=== PATIENT | female | born 1950 | race Asian ===

== ENCOUNTER 2022-08-24 12:33 | Emergency (ER) | payer OTHER ==
[~2022-08-24] VITALS: Ht 157.5 cm; Wt 54.5 kg
[2022-08-24 12:37] VITALS: BP 129/86
[2022-08-24] MEDS ORDERED: ACET-2247 PO (12:43)
[2022-08-24] MEDS ORDERED: LOSA100T59 PO (12:43)
[2022-08-24] MEDS ORDERED: ESTR42.510 VG (12:43)
[2022-08-24] MEDS ORDERED: FAMO40TA7 PO (12:43)
[2022-08-24] MEDS ORDERED: PREDAOS OS (13:04)
[2022-08-24] MEDS ORDERED: VALA100026 PO (13:04)
== END 2022-08-24 13:17 | disposition home or self-care (01) ==
LOC: EMS 12:36
DX: B02.30 Zoster ocular disease, unspecified (principal); R51.9 Headache, unspecified; I10 Essential (primary) hypertension; Z91.013 Allergy to seafood
CPT/HCPCS: 99283; Z7502

== ENCOUNTER 2022-08-31 11:46 | Emergency (ER) | payer OTHER ==
[~2022-08-31] VITALS: Ht 160 cm; Wt 56.8 kg
[~2022-08-31 11:46] MED LIST: ACET-2247 PO; ESTR42.510 VG; FAMO40TA7 PO; LOSA100T59 PO; PREDAOS OS; VALA100026 PO
[2022-08-31] MEDS ORDERED: SODIUM CHLORIDE 0.9% 1,000 ML IV ONE (13:15)
[2022-08-31 13:27] LABS: HEMATOCRIT 33.7 % (36-46); HEMOGLOBIN 11.4 g/dL (12.0-16.0); LYMPHOCYTES # (AUTO) 1.8 K/uL (1.0-4.8); LYMPHOCYTES % (AUTO) 23.2 % (22.0-44.0); MEAN CORPUSCULAR HEMOGLOBIN 30.9 pg (26.0-34.0); MEAN CORPUSCULAR HGB CONC 33.8 G/dL (31.0-37.0); MEAN CORPUSCULAR VOLUME 92 fL (80-100); MONOCYTES # (AUTO) 0.5 K/uL (0.1-1.0); MONOCYTES % (AUTO) 6.6 % (2.0-9.0); NEUTROPHILS # (AUTO) 5.2 K/uL (1.8-7.7); NEUTROPHILS % (AUTO) 66.2 % (40.0-70.0); PLATELET COUNT (AUTO) 317 K/uL (150-450); RED BLOOD CELL COUNT(AUTO) 3.68 MIL/uL (4.00-5.20); RED CELL DISTRIBUTION WIDTH 13.5 % (11.5-14.5)
[2022-08-31 13:37] LABS: CALCIUM, TOTAL 9.4 mg/dL (8.8-10.5); CREATININE 1.29 mg/dL (0.60-1.30); POTASSIUM 3.9 mmol/L (3.5-5.1)
[2022-08-31 13:42] LABS: BILIRUBIN,TOTAL 0.6 mg/dL (0.1-1.0)
[2022-08-31 13:44] LABS: INR 0.9 (0.9-1.1); PROTHROMBIN TIME 9.8 SEC (9.4-11.6)
[2022-08-31 14:45] VITALS: BP 144/83
[2022-08-31 16:10] LABS: APPEARANCE,URINE CLEAR (CLEAR); BILIRUBIN,URINE NEGATIVE (NEGATIVE); GLUCOSE, URINE (UA) NEGATIVE (NEGATIVE); KETONES,URINE NEGATIVE (NEGATIVE); LEUKOCYTE ESTERASE ,URINE NEGATIVE (NEGATIVE); NITRATE,URINE NEGATIVE (NEGATIVE); OCCULT BLOOD,URINE SMALL (NEGATIVE); PH,URINE 5.5 (5.0-8.0); PROTEIN,URINE NEGATIVE (NEGATIVE); SPECIFIC GRAVITIY, URINE 1.009 (1.003-1.030); UROBILINOGEN,URINE <=1.0 mg/dL (<=1.0)
[2022-08-31 16:27] LABS: BACTERIA,URINE Rare /HPF (None Seen); SQUAMOUS EPITHELIAL CELL,UR Rare /LPF (None Seen); WBC,URINE 0-2 /HPF (0-5)
== END 2022-08-31 16:52 | disposition home or self-care (01) ==
LOC: EMS 11:47
DX: E86.0 Dehydration (principal); R42 Dizziness and giddiness; I10 Essential (primary) hypertension; Z91.013 Allergy to seafood
CPT/HCPCS: 99285; 96360; 70450; 71045; 80053; 81001; 83880; 84484; 85025; 85610; 85730; 36415; 93005; J7030

== ENCOUNTER 2022-09-06 10:19 | Emergency (ER) | payer OTHER ==
[~2022-09-06] VITALS: Ht 157.5 cm; Wt 54.5 kg
[2022-09-06 10:24] VITALS: BP 143/77
[2022-09-06] MEDS ORDERED: SIMV-261 PO (10:25)
[2022-09-06] MEDS ORDERED: IBUPROFEN 600 MG TABLET PO ONE (12:45)
== END 2022-09-06 13:45 | disposition home or self-care (01) ==
LOC: EMS 10:36
DX: M54.6 Pain in thoracic spine (principal); I10 Essential (primary) hypertension
CPT/HCPCS: 99282; Z7502; Z7610

== ENCOUNTER 2023-08-21 08:43 | Emergency (ER) | payer MEDICARE, OTHER ==
[~2023-08-21] VITALS: Ht 160 cm; Wt 54.5 kg
[~2023-08-21 08:43] MED LIST changes: -ESTR42.510 VG; -PREDAOS OS; +SIMV-261 PO; -VALA100026 PO
[2023-08-21 08:45] VITALS: TEMP 97.9
[2023-08-21] MEDS: CYCLOBENZAPRINE HCL 10 MG TABLET PO ONE (09:15)
[2023-08-21] MEDS: LIDOCAINE 5% TRANSDERMAL PATCH TD ONE (09:15)
[2023-08-21] MEDS: KETOROLAC TROMETHAMINE 30 MG/ML VIAL IM ONE (09:16)
[2023-08-21 10:10] VITALS: BP 116/64; PULSE 82; RESP 16
[2023-08-21] MEDS ORDERED: CYCL-448 PO (10:23)
[2023-08-21] MEDS ORDERED: LIDO700A15 TP (10:23)
[2023-08-21] MEDS ORDERED: IBUP-1506 PO (10:23)
== END 2023-08-21 10:29 | disposition home or self-care (01) ==
LOC: EMS 08:51
DX: M43.6 Torticollis (principal); I10 Essential (primary) hypertension; Z91.013 Allergy to seafood
CPT/HCPCS: 99283; 96372; J1885

== ENCOUNTER 2024-03-22 13:50 | Emergency (ER) | payer MEDICARE, OTHER ==
[~2024-03-22] VITALS: Ht 160 cm; Wt 54.5 kg
[~2024-03-22 13:50] MED LIST changes: -ACET-2247 PO; +CYCL-448 PO; -FAMO40TA7 PO; +IBUP-1506 PO; +LIDO700A15 TP
[2024-03-22 14:10] VITALS: BP 117/54; PULSE 80; RESP 14; TEMP 98.2; O2SAT 100
[2024-03-22 14:53] LABS: APPEARANCE,URINE CLEAR (CLEAR); BILIRUBIN,URINE NEGATIVE (NEGATIVE); COLOR,URINE COLORLESS (YELLOW); GLUCOSE, URINE (UA) NEGATIVE (NEGATIVE); KETONES,URINE NEGATIVE (NEGATIVE); LEUKOCYTE ESTERASE ,URINE NEGATIVE (NEGATIVE); NITRATE,URINE NEGATIVE (NEGATIVE); OCCULT BLOOD,URINE SMALL (NEGATIVE); PH,URINE 5.5 (5.0-8.0); PROTEIN,URINE NEGATIVE (NEGATIVE); SPECIFIC GRAVITIY, URINE 1.006 (1.003-1.030); UROBILINOGEN,URINE <=1.0 mg/dL (<=1.0)
[2024-03-22 15:05] LABS: BACTERIA,URINE None Seen /HPF (None Seen); RBC,URINE 0-2 /HPF (0-2); SQUAMOUS EPITHELIAL CELL,UR Few /LPF (None Seen); WBC,URINE None Seen /HPF (0-5)
[2024-03-22] MEDS ORDERED: 0.9% SODIUM CHLORIDE 10 ML SYRINGE IVP ONE (17:28)
[2024-03-22] MEDS ORDERED: IOHEXOL 300 MG/ML 100 ML VIAL ONE (17:29)
[2024-03-22] MEDS ORDERED: SODIUM CHLORIDE 0.9% 0 ML ONE (17:29)
[2024-03-22] MEDS ORDERED: POLY17PO47 PO (17:58)
[2024-03-22 18:01] LABS: ANION GAP 10 mmol/L (8-16); CALCIUM, TOTAL 9.1 mg/dL (8.8-10.5); CARBON DIOXIDE 27 mmol/L (22-29); CHLORIDE 102 mmol/L (98-107); CREATININE 0.74 mg/dL (0.60-1.30); GLOMERULAR FILTR. RATE CALC > 60 mL/min (>60); GLUCOSE,RANDOM 92 mg/dL (70-110); POTASSIUM 4.3 mmol/L (3.5-5.1); SODIUM SERUM 139 mmol/L (136-145); UREA NITROGEN, BLOOD 11 mg/dL (7-18)
[2024-03-22 18:07] LABS: ALANINE AMINOTRANSFERASE 19 U/L (12-78); ALBUMIN 3.9 g/dL (3.4-5.0); ALKALINE PHOSPHATASE 88 U/L (46-116); ASPARTATE AMINOTRANSFERASE 28 U/L (15-37); BILIRUBIN,TOTAL 1.3 mg/dL (0.1-1.0); LIPASE 65 U/L (16-77)
[2024-03-22 18:08] LABS: TROPONIN I-HIGH SENSITIVITY 5 ng/L (<51)
[2024-03-22 19:08] LABS: BASOPHILS % (AUTO) 2.2 % (0.0-2.0); EOSINOPHILS % (AUTO) 1.6 % (1.0-6.0); HEMATOCRIT 26.4 % (36-46); LYMPHOCYTES # (AUTO) 2.4 K/uL (1.0-4.8); LYMPHOCYTES % (AUTO) 25.5 % (22.0-44.0); MEAN CORPUSCULAR HEMOGLOBIN 32.2 pg (26.0-34.0); MEAN CORPUSCULAR HGB CONC 34.2 G/dL (31.0-37.0); MEAN CORPUSCULAR VOLUME 94 fL (80-100); MONOCYTES # (AUTO) 0.8 K/uL (0.1-1.0); NEUTROPHILS % (AUTO) 62.7 % (40.0-70.0); PLATELET COUNT (AUTO) 282 K/uL (150-450); RED CELL DISTRIBUTION WIDTH 14.6 % (11.5-14.5); WHITE BLOOD COUNT (AUTO) 9.5 K/uL (4.5-11.0)
== END 2024-03-22 19:12 | disposition home or self-care (01) ==
LOC: EMS 14:09
DX: K59.00 Constipation, unspecified (principal); E78.00 Pure hypercholesterolemia, unspecified; I10 Essential (primary) hypertension; Z90.710 Acquired absence of both cervix and uterus; Z79.899 Other long term (current) drug therapy
CPT/HCPCS: 80048; 80076; 81001; 83690; 84484; 85025; 99283; 99284; J7050; Q9967